=== PATIENT | female | born 1985 | race Caucasian/White ===

== ENCOUNTER → 2021-10-07 | Emergency (ER) | payer OTHER ==
[~2021-10-07] VITALS: Ht 172.7 cm; Wt 84.8 kg
[~2021-10-07] MED LIST: HUMALOG100 UNIT/1
== END | disposition home or self-care (01) ==
LOC: ER 22:26
DX: Z53.21 Procedure and treatment not carried out due to patient leaving prior to being seen by health care provider (principal)